=== PATIENT | female | born 2005 | race Caucasian/White ===

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

== ENCOUNTER 2023-02-22 22:21 | Outpatient (REF) | payer OTHER, SELFPAY ==
[2023-02-23 01:31] LABS: Chloride* 103 mmol/L (96-114); Potassium* 4.3 mmol/L (3.6-5.1); Sodium* 140 mmol/L (135-149)
[2023-02-23 01:33] LABS: Cholesterol* 123 mg/dL (90-199); Creatinine* 0.6 mg/dL (0.6-1.2); Estimated Glomerular Filt Rate 133 ml/min
[2023-02-23 01:34] LABS: Anion Gap 11 mEq/L (7-15); Blood Urea Nitrogen* 9 mg/dL (5-24); Carbon Dioxide* 26 mmol/L (20-32); Glucose* 79 mg/dL (60-115); HDL Cholesterol* 58 mg/dL (>=50); LDL Cholesterol Calculated 43 mg/dL (<100); Triglycerides* 109 mg/dL (40-149)
== END 2023-02-22 22:22 | disposition home or self-care (01) ==
LOC: NPINS 22:21
PROVIDERS: Visit Provider Registered Nurse
DX: F41.1 Generalized anxiety disorder (principal); F90.0 Attention-deficit hyperactivity disorder, predominantly inattentive type; F42.9 Obsessive-compulsive disorder, unspecified; F33.42 Major depressive disorder, recurrent, in full remission
CPT/HCPCS: 80048; 80061; 83036